=== PATIENT | female | born 1945 | race Caucasian/White ===

== ENCOUNTER → 2017-05-14 | Outpatient (CLI) | payer MEDICARE, BC | END | disposition home or self-care (01) | LOC: KCIC MAMMO 13:45 | PROVIDERS: ATTEND Family Medicine | DX: Z12.31 Encounter for screening mammogram for malignant neoplasm of breast (principal) | CPT/HCPCS: 77063; G0202; 77067 ==

== ENCOUNTER → 2017-05-24 | Outpatient (CLI) | payer MEDICARE, BC ==
--- NOTE | 2017-05-24 11:12 | KCIC ---
EXAM: Abdomen sonogram. HISTORY: Weight loss. TECHNIQUE: Sonographic imaging of the abdomen was performed. COMPARISON: None. FINDINGS: The liver is normal in size. There is hepatic steatosis. The gallbladder is unremarkable. The common bile duct is normal in caliber. The kidneys are unremarkable. The pancreatic tail and spleen are obscured due to bowel gas. The aorta is normal in caliber. The inferior vena cava is patent. IMPRESSION: 1. Obscured pancreatic tail and spleen due to bowel gas. 2. Otherwise, unremarkable abdomen sonogram. Electronically signed by: Cara Rico MD (05/24/2017 11:08 AM) [id number]
--- NOTE | 2017-05-24 12:17 | KCIC ---
EXAM: Thyroid sonogram. HISTORY: Autoimmune thyroiditis. Right thyroidectomy. TECHNIQUE: Sonographic imaging of the thyroid was performed. COMPARISON: None. FINDINGS: The right thyroid lobe is surgically absent. The left thyroid lobe measures 4.1 x 1.4 x 1.4 cm. The isthmus measures 2 mm. There is a solid hypoechoic nodule with increased peripheral blood flow within the superior left thyroid lobe measuring 9 x 8 x 6 mm. There is a complex solid hypoechoic nodule with small cystic components and increased blood flow within the mid to lower left thyroid lobe measuring 13 x 13 x 6 mm. No additional thyroid lesion is seen. IMPRESSION: 1. 13 mm and 9 mm left thyroid nodules. The larger of these lesions is amenable to sonographic guided fine-needle aspiration if clinically indicated. 2. Surgically absent right thyroid lobe. Electronically signed by: Cara Rico MD (05/24/2017 12:14 PM) [id number]
--- NOTE | 2017-05-24 12:57 | KCIC ---
EXAM: Brain MRI without contrast. HISTORY: Ataxia. Weight loss. TECHNIQUE: Multiplanar, multisequence magnetic resonance imaging of the brain was performed without contrast. COMPARISON: None. FINDINGS: There is no restricted diffusion to suggest acute or subacute infarction. There is no susceptibility effect to suggest hemorrhage. There is no mass effect or midline shift. There is no hydrocephalus. There are multiple scattered focal areas of T2/FLAIR hyperintensity within the cerebral white matter, a nonspecific finding. The paranasal sinuses and mastoid air cells are unremarkable. There is evidence of lens surgery. There are normal flow voids within the cerebral vessels. IMPRESSION: 1. No acute intracranial finding. 2. Scattered focal areas of signal change throughout the cerebral white matter, a nonspecific finding. Given the patient age, this likely due to chronic small vessel disease rather than an alternative etiology such as demyelinating disease. Electronically signed by: Cara Rico MD (05/24/2017 12:54 PM) [id number]
== END | disposition home or self-care (01) ==
LOC: KCIC US 09:17
PROVIDERS: ATTEND Family Medicine
DX: K76.0 Fatty (change of) liver, not elsewhere classified (principal); E06.3 Autoimmune thyroiditis; E04.2 Nontoxic multinodular goiter; R27.0 Ataxia, unspecified; R63.4 Abnormal weight loss
CPT/HCPCS: 70551; 76536; 76700

== ENCOUNTER → 2017-06-06 | Outpatient (CLI) | payer MEDICARE, BC ==
--- NOTE | 2017-06-06 13:56 | RAD ---
Indication: Abnormal screening study. Technique: Ultrasound of the right upper outer quadrant was performed. Findings: There is a well circumscribed hypoechoic 15 mm oval-shaped mass with increased through transmission corresponding to the area of concern on mammogram. Reviewing the older mammograms, this finding has been present and unchanged back to 2013, and probably was present on exams from 2010 and 2005. There is no associated color flow. Long-standing stability favors probably benign process such as fibroadenoma. This could also be a complicated cyst. Impression: Probably benign mass in the right breast with documented stability over a long period of time. BI-RADS Category 3. 6 month follow-up ultrasound is recommended.
== END | disposition home or self-care (01) ==
LOC: KCIC US 12:54
PROVIDERS: ATTEND Family Medicine
DX: N63.10 Unspecified lump in the right breast, unspecified quadrant (principal)
CPT/HCPCS: 76641